=== PATIENT | female | born 1995 | race Caucasian/White ===

== ENCOUNTER 2016-06-26 13:34 | Emergency (ER) | payer OTHER ==
[~2016-06-26] VITALS: Wt 62.0 kg
[~2016-06-26 13:34] MED LIST: HYDR-3498 PO; IBUP-1542 PO; NITR-58 PO; ONDA4TAB35 PO; PANT20TA2 PO
[2016-06-26 13:37] VITALS: Wt 62.0 kg
[2016-06-26 15:40] LABS: URINE BLOOD (Dip) POC 3+ (NEGATIVE)
--- NOTE | 2016-06-26 15:47 | ERD ---
ER Documentation Chief Complaint Date/Time DATE: 06/26/16 TIME: 15:44 Chief Complaint VAGINAL BLEEDING SINCE YESTERDAY. UNKNOWN PREG. LOW ABD PAIN HPI This is a 20-year-old female presents to the ER stating that she got her period yesterday. This morning patient stated that she saw a large clot in the toilet and she thinks she had a miscarriage. Patient denies any pelvic pain. She did not take a test at home. Patient has never been before. Patient's last normal menstrual period was on May 21, 2016 and her bleeding began yesterday June 25, 2016. Denies any urinary frequency or dysuria. She denies any fevers or chills. Denies any vaginal discharge. Patient is currently sexually active, and has not used protection. ROS 12 point review of systems was done, all negative except per HPI. Medications Home Meds Active Scripts Ondansetron Hcl* (Zofran* ODT) 4 mg -ODT Tab.disper, 4 MG PO Q6 Y for NAUSEA AND /OR VOMITING, #6 TAB Prov:ADAM BUTLER DO 08/25/15 Hydrocodone Bit-Acetaminophen* ([place]*) 5-325 Mg Tab, 1 TAB PO Q6 Y for PAIN, # 7 TAB Prov:ADAM BUTLER DO 08/25/15 Nitrofurantoin Monohyd Macrocr* (Macrobid*) 100 Mg Capsr, 100 MG PO BID for 5 Days, CAP Prov:ADAM BUTLER DO 08/25/15 Ondansetron Hcl* (Zofran* ODT) 4 mg -ODT Tab.disper, 4 MG PO Q6 Y for NAUSEA AND /OR VOMITING, #10 TAB Prov:SUNSHINE SCHAEFER MD 08/25/15 Pantoprazole* (Protonix*) 20 Mg Tablet.dr, 20 MG PO DAILY for 14 Days, TAB Prov:SUNSHINE SCHAEFER MD 08/25/15 Ibuprofen* (Motrin*) 600 Mg Tab, 600 MG PO Q6, #30 TAB Prov:MENA CUELLAR 08/19/15 Allergies Allergies: Coded Allergies: No Known Allergy (Verified , 08/25/15) PMhx/Soc History of Surgery: No Anesthesia Reaction: No Hx Neurological Disorder: No Hx Respiratory Disorders: No Hx Cardiac Disorders: No Hx Psychiatric Problems: No Hx Miscellaneous Medical Probl: No Hx Alcohol Use: No Hx Substance Use: No Hx Tobacco Use: No (ttried smoking before) Physical Exam Vitals Vital Signs Date Time Temp Pulse Resp B/P Pulse Ox O2 Delivery O2 Flow Rate FiO2 06/26/16 13:37 98.4 85 20 117/72 98 Physical Exam GENERAL: The patient is well developed and appropriate for usual state of health , in no apparent distress. HEENT: Atraumatic. CHEST: Clear to auscultation bilaterally. There are no rales, wheezes or rhonchi. HEART: Regular rate and rhythm. No murmurs, clicks, rubs or gallops. ABDOMEN: Soft, nontender and nondistended. Good bowel sounds. No rebound or guarding. No gross peritonitis. No gross organomegaly or masses. No Hallman sign or McBurney point tenderness. EXTREMITIES: Full range of motion. Grossly neurovascularly intact. NEURO: Alert and oriented. Results 24 hrs Laboratory Tests Test 06/26/16 15:42 Bedside Urine Blood 3+ Bedside Urine Glucose (UA) Negative Bedside Urine Ketones (LAB) Negative Bedside Urine Leukocyte Esterase (L 1+ Bedside Urine Nitrite (LAB) Negative Bedside Urine Protein (LAB) 2+ Bedside Urine pH (LAB) 6.0 Procedures/MDM This is a 20-year-old female presents to the ER complaining she is having a miscarriage. test was done in the ER however patient is not . This is patient's regular menstruation. Likely more heavy than usual. Patient needs to follow-up with the primary care doctor within 1-2 days or return to ER sooner if symptoms worsen. My Medical decision making was shared with the patient she understands and agrees with plan. Departure Diagnosis: Primary Impression: Menstruation Condition: Stable Patient Instructions: Understanding the Normal Menstrual Cycle Additional Instructions: Call your primary care doctor TOMORROW for an appointment during the next 1-2 days.See the doctor sooner or return here if your condition worsens before your appointment time. MENA CUELLAR Jun 26, 2016 15:47
== END 2016-06-26 15:55 | disposition home or self-care (01) ==
LOC: FTE 13:34
DX: N94.89 Other specified conditions associated with female genital organs and menstrual cycle (principal)
CPT/HCPCS: 81003; Z7502; 99282

== ENCOUNTER 2016-08-26 07:41 | Emergency (ER) | payer OTHER ==
[~2016-08-26] VITALS: Ht 152.4 cm; Wt 62.0 kg
[2016-08-26 07:43] VITALS: Ht 152.4 cm; Wt 62.0 kg
[2016-08-26] MEDS ORDERED: IBUP800T25 PO (07:52)
[2016-08-26] MEDS ORDERED: ONDA4TAB14 PO (07:52)
--- NOTE | 2016-08-26 08:00 | ERD ---
ER Documentation Chief Complaint Date/Time DATE: 08/26/16 TIME: 07:59 Chief Complaint vomitting and epigastric pain x 4 days HPI This is a 20-year-old female who presents emergency room with 3-4 days of nausea vomiting and diarrhea. The patient describes nonbloody nonbilious emesis , mild cramping abdominal pain and loose watery stools. No recent travel, sick contacts, antibiotics. LMP 1 week ago normal. She denies risk of . ROS All systems reviewed and are negative except as per history of present illness. Medications Home Meds Active Scripts Ibuprofen* (Motrin*) 800 Mg Tab, 800 MG PO Q6H Y for PAIN AND OR ELEVATED TEMP, #30 TAB Prov:TOM YEE MD 08/26/16 Ondansetron (Ondansetron Odt) 4 Mg Tab.rapdis, 4 MG PO Q6H Y for NAUSEA AND/OR VOMITING, #30 TAB Prov:OTM YEE MD 08/26/16 Ondansetron Hcl* (Zofran* ODT) 4 mg -ODT Tab.disper, 4 MG PO Q6 Y for NAUSEA AND /OR VOMITING, #6 TAB Prov:ADAM BUTLER DO 08/25/15 Hydrocodone Bit-Acetaminophen* ([place]*) 5-325 Mg Tab, 1 TAB PO Q6 Y for PAIN, # 7 TAB Prov:ADAM BUTLER DO 08/25/15 Nitrofurantoin Monohyd Macrocr* (Macrobid*) 100 Mg Capsr, 100 MG PO BID for 5 Days, CAP Prov:LUKEADAM DO 08/25/15 Ondansetron Hcl* (Zofran* ODT) 4 mg -ODT Tab.disper, 4 MG PO Q6 Y for NAUSEA AND /OR VOMITING, #10 TAB Prov:SUNSHINE SCHAEFER MD 08/25/15 Pantoprazole* (Protonix*) 20 Mg Tablet.dr, 20 MG PO DAILY for 14 Days, TAB Prov:SUNSHINE SCHAEFER MD 08/25/15 Ibuprofen* (Motrin*) 600 Mg Tab, 600 MG PO Q6, #30 TAB Prov:MENA CUELLAR 08/19/15 Allergies Allergies: Coded Allergies: No Known Allergy (Verified , 08/25/15) PMhx/Soc History of Surgery: No Anesthesia Reaction: No Hx Neurological Disorder: No Hx Respiratory Disorders: No Hx Cardiac Disorders: No Hx Psychiatric Problems: No Hx Miscellaneous Medical Probl: No Hx Alcohol Use: No Hx Substance Use: No Hx Tobacco Use: No (ttried smoking before) Smoking Status: Never smoker FmHx Family History: No diabetes Physical Exam Vitals Vital Signs Date Time Temp Pulse Resp B/P Pulse Ox O2 Delivery O2 Flow Rate FiO2 08/26/16 07:43 98.1 65 19 113/65 100 Physical Exam General: Well developed, well nourished, no acute distress Head: Normocephalic, atraumatic. Eyes: Pupils equally reactive, EOM intact ENT: Moist mucous membranes Neck: Supple, no lymphadenopathy Respiratory: Lungs clear bilaterally, no distress Cardiovascular: RRR, no murmurs, rubs, or gallops Abdominal: Soft, non-tender, non-distended, no peritoneal signs, no tenderness to McBurney's point, negative Hallman sign : Deferred MSK: No edema, no unilateral swelling, 5/5 strength Neurologic: Alert and oriented, moving all extremities, normal speech, no focal weakness, no cerebellar signs Skin: No rash Psych: Normal mood Procedures/MDM The patient's clinical presentation is very consistent with an acute viral syndrome And likely viral gastroenteritis. She has benign abdominal examination is well-hydrated with normal vital signs. No indication for laboratory testing or diagnostic imaging. The patient does not exhibit any clinical signs or symptoms concerning for serious bacterial infection or systemic illness. Based on history and clinical exam findings the patient does not appear to have evidence of pneumonia, strep pharyngitis, urinary tract infection, bacteremia, sepsis, or meningitis. For these reasons I do not believe it is necessary to obtain laboratory testing or diagnostic imaging. I believe it would be appropriate for symptom control, and close outpatient primary care follow-up. We discussed follow up with the patient's primary care doctor within 24 to 48 hours as needed. We also discussed return to the emergency room for worsening symptoms or worsening condition. Discharge Medications: Zofran, Motrin Departure Diagnosis: Primary Impression: Nausea vomiting and diarrhea Condition: Stable Patient Instructions: Vomiting And Diarrhea, Nonspecific (Adult) Additional Instructions: Call your primary care doctor TOMORROW for an appointment during the next 1 WEEK.Tell the secretary to the vice president that you were referred from this facility.See the doctor sooner or return here if your condition worsens before your appointment time. TOM YEE MD Aug 26, 2016 08:00
== END 2016-08-26 07:58 | disposition home or self-care (01) ==
LOC: FTE 07:41
DX: R11.2 Nausea with vomiting, unspecified (principal); R19.7 Diarrhea, unspecified; Z87.891 Personal history of nicotine dependence
CPT/HCPCS: 99283

== ENCOUNTER 2017-11-27 04:22 | Emergency (ER) | END 2017-11-27 05:24 | disposition home or self-care (01) ==

== ENCOUNTER 2018-06-26 21:02 | Emergency (ER) | payer OTHER ==
[~2018-06-26] VITALS: Ht 162.6 cm; Wt 62.6 kg
[~2018-06-26 21:02] MED LIST changes: +IBUP800T48 PO; +ONDA4TAB14 PO; +TRAM50TA2 PO
[2018-06-26 21:37] VITALS: Ht 162.6 cm; Wt 62.6 kg
[2018-06-27] MEDS ORDERED: KETOROLAC 30 MG INJ IM STA (03:26)
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
[2018-06-27] MEDS ORDERED: IBUP-1542 PO (05:09)
[2018-06-27] MEDS ORDERED: MUPI22OI2 TOP (05:10)
[2018-06-27 05:14] VITALS: BP 107/60; PULSE 76; RESP 18
[2018-06-27] MEDS ORDERED: DIPHTH/TET/ACEL PERTUSS (ADULT) 0.5 ML VIAL IM* ONE (05:30)
== END 2018-06-27 05:15 | disposition home or self-care (01) ==
LOC: FTE 21:02
DX: S80.02XA Contusion of left knee, initial encounter (principal); V00.831A Fall from motorized mobility scooter, initial encounter; Z23 Encounter for immunization
CPT/HCPCS: 73562; 81025; 90471; 90715; 96372; J1885; Z7502